=== PATIENT | male | born 1975 | race Caucasian/White ===

== ENCOUNTER → 2020-02-07 14:22 | Outpatient (BNVA) | payer MEDICARE, SELFPAY | PROVIDERS: Family Provider Nurse Practitioner Family; Visit Provider Nurse Practitioner | DX: E11.9 Type 2 diabetes mellitus without complications (principal); I10 Essential (primary) hypertension; G43.109 Migraine with aura, not intractable, without status migrainosus; R39.11 Hesitancy of micturition; Z11.59 Encounter for screening for other viral diseases | CPT/HCPCS: 80053; 80061; 83036; 86705; 86706; 86709; 86803; 87340 ==

== ENCOUNTER → 2020-02-08 08:42 | Outpatient (BNVA) | payer MEDICARE, SELFPAY | PROVIDERS: Family Provider Nurse Practitioner Family; Visit Provider Nurse Practitioner | DX: E11.9 Type 2 diabetes mellitus without complications (principal) | CPT/HCPCS: 81000 ==

== ENCOUNTER → 2020-06-03 14:54 | Outpatient (BNVA) | payer MEDICARE, SELFPAY | PROVIDERS: Family Provider Nurse Practitioner Family; Visit Provider Nurse Practitioner Family | DX: E11.9 Type 2 diabetes mellitus without complications (principal); E78.2 Mixed hyperlipidemia | CPT/HCPCS: 80053; 80061; 83036; 84443; 85025 ==

== ENCOUNTER → 2020-06-05 09:08 | Outpatient (BNVA) | payer MEDICARE, SELFPAY | PROVIDERS: Family Provider Nurse Practitioner Family; Visit Provider Nurse Practitioner Family | DX: R39.11 Hesitancy of micturition (principal); E11.9 Type 2 diabetes mellitus without complications | CPT/HCPCS: 81000; 82043 ==

== ENCOUNTER 2020-07-01 14:46 | Outpatient (CLI) | payer MEDICARE, MEDICAID, SELFPAY ==
--- NOTE | 2020-07-01 15:09 | XR_ITS ---
WS: [id number] ABDOMEN Supine view of the abdomen CLINICAL INFORMATION: low back pain, history of kidney stones COMPARISON: KUB FINDINGS: Large left staghorn calculus measuring 3.1 x 1.5 cm is new from 2013. Small surrounding satellite marion culi.No visualized right renal parenchymal calculi. No visualized ureteral calculi. XR/XR abdomen 1V* [id number] IMPRESSION: Large left staghorn calculus measuring 3.1 x 1.5 cm is new from 2013. No visual ized ureteral calculi.
== END 2020-07-01 14:47 | disposition home or self-care (01) ==
LOC: RADWPI 14:50
PROVIDERS: Family Provider Nurse Practitioner Family; PCP Nurse Practitioner Family; Visit Provider Nurse Practitioner Family
DX: M54.5 Low back pain (principal); Z87.442 Personal history of urinary calculi; N20.0 Calculus of kidney
CPT/HCPCS: 74018; 80053; 81000; 85025

== ENCOUNTER 2020-07-04 13:44 | Outpatient (CLI) | payer MEDICARE, MEDICAID, SELFPAY ==
--- NOTE | 2020-07-04 13:49 | XRR_ITS ---
PROCEDURE INFORMATION: Exam: XR Abdomen, 1 View Exam date and time: 07/04/2020 1:59 PM Age: 44 years old Clinical indication: Condition or disease; Kidney or ureter condition; Calculus (stone) in kidney; Prior surgery; Surgery type: Cysto; Additional info: HX of renal stone TECHNIQUE: Imaging protocol: XR of the abdomen. Views: Frontal supine view of the abdomen. 1 View. COMPARISON: CR XR abdomen 1V* [id number] 07/01/2020 3:13 PM FINDINGS: Gastrointestinal tract: The bowel gas pattern is within normal limits. Organs: A staghorn calculus is seen in the lower pole collecting system of the left kidney. Bones/joints: Unremarkable. Other findings: This finding was present on prior examination and appears similar. XR/XR KUB [id number] IMPRESSION: 1. No acute GI abnormality. 2. Stable staghorn calculus lower pole left kidney
== END 2020-07-04 13:45 | disposition home or self-care (01) ==
LOC: LAB 13:46
PROVIDERS: Family Provider Nurse Practitioner Family; PCP Nurse Practitioner Family; Visit Provider Nurse Practitioner Family
DX: Z87.442 Personal history of urinary calculi (principal); N20.0 Calculus of kidney
CPT/HCPCS: 74018

== ENCOUNTER → 2020-09-23 15:23 | Outpatient (BNVA) | payer MEDICARE, SELFPAY | PROVIDERS: PCP Nurse Practitioner Family; Visit Provider Nurse Practitioner Family | DX: E11.9 Type 2 diabetes mellitus without complications (principal); E78.2 Mixed hyperlipidemia; I10 Essential (primary) hypertension; G43.109 Migraine with aura, not intractable, without status migrainosus; R39.11 Hesitancy of micturition | CPT/HCPCS: 80053; 80061; 83036; 84443; 85025 ==

== ENCOUNTER → 2020-11-06 10:19 | Outpatient (BNVA) | payer MEDICARE, MEDICAID, SELFPAY | PROVIDERS: PCP Nurse Practitioner Family; Visit Provider Nurse Practitioner Family | DX: M54.5 Low back pain (principal) | CPT/HCPCS: 72100 ==

== ENCOUNTER → 2020-11-14 09:16 | Outpatient (BNVA) | payer MEDICARE, MEDICAID, SELFPAY | PROVIDERS: PCP Nurse Practitioner Family; Visit Provider Nurse Practitioner Family | DX: M54.5 Low back pain (principal); R20.0 Anesthesia of skin; Z73.89 Other problems related to life management difficulty; Z87.442 Personal history of urinary calculi | CPT/HCPCS: 81000 ==

== ENCOUNTER 2020-11-20 08:29 | Outpatient (CLI) | payer MEDICARE, MEDICAID, SELFPAY ==
--- NOTE | 2020-11-20 08:15 | XR_ITS ---
WS: [id number] KUB, AP view, 11/20/2020 Clinical Data: renal calculus Comparison: KUB, 07/04/2020. Findings: No abnormal intraabdominal masses are seen. There is no dilatated small bowel or evidence of obstruct ion. The staghorn calculus overlying the left kidney remains unchanged. XR/XR KUB [id number] Impression: Staghorn calculus lower pole left kidney.
== END 2020-11-20 08:30 | disposition home or self-care (01) ==
LOC: RAD 08:32
PROVIDERS: PCP Nurse Practitioner Family; Visit Provider Urology
DX: N20.0 Calculus of kidney (principal)
CPT/HCPCS: 74018; 81003

== ENCOUNTER → 2021-01-01 08:42 | Outpatient (BNVA) | payer MEDICARE, MEDICAID, SELFPAY | PROVIDERS: PCP Nurse Practitioner Family; Visit Provider Nurse Practitioner Family | DX: E11.9 Type 2 diabetes mellitus without complications (principal); E78.2 Mixed hyperlipidemia; M54.9 Dorsalgia, unspecified; I10 Essential (primary) hypertension; G43.109 Migraine with aura, not intractable, without status migrainosus; R39.11 Hesitancy of micturition; M79.89 Other specified soft tissue disorders; M54.5 Low back pain | CPT/HCPCS: 80053; 80061; 83036; 84443; 85025 ==

== ENCOUNTER 2021-01-15 08:44 | Outpatient (CLI) | payer MEDICARE, MEDICAID, SELFPAY ==
--- NOTE | 2021-01-15 08:45 | USCV_ITS ---
Kishan García Age: 45 Gender: M : 1975 Exam Date: 01/15/2021 09:13 Ordering Phys: Luz Luther-Deepti Technologist: DONALD [place] [facility] [place] MIXED HYPERLIPIDEMIA PROCEDURES: Venous duplex imaging was performed in only the right lower extremity. The following venous structures were evaluated: common femoral vein, profunda vein, proximal portion of the greater saphenous vein, superficial femoral vein, and the popliteal vein. In addition, the posterior tibial and peroneal trunk were evaluated. Serial compression, augmentation maneuvers, and spectral Doppler flow evaluation were performed. FINDINGS: Normal 2-D Doppler and augmentation and compressibility throughout the lower extremity venous structures. Additional imaging through the proximal calf veins also reveals no thrombus. Limited evaluation of the greater saphenous vein is patent with no thrombus. CONCLUSIONS No DVT right lower extremity. Dr. Vivien Wilder DO (Electronically Signed) Final Date: 16 January 2021 08:00 S
== END 2021-01-15 08:45 | disposition home or self-care (01) ==
LOC: US 08:48
PROVIDERS: PCP Nurse Practitioner Family; Visit Provider Nurse Practitioner Family
DX: E78.2 Mixed hyperlipidemia (principal)
CPT/HCPCS: 93971

== ENCOUNTER → 2021-05-12 16:31 | Outpatient (BNVA) | payer MEDICARE, MEDICAID, SELFPAY | PROVIDERS: PCP Nurse Practitioner Family; Visit Provider Nurse Practitioner Family | DX: R19.7 Diarrhea, unspecified (principal); I10 Essential (primary) hypertension; E11.9 Type 2 diabetes mellitus without complications; E78.2 Mixed hyperlipidemia | CPT/HCPCS: 80053; 85025 ==

== ENCOUNTER → 2021-05-13 08:54 | Outpatient (BNVA) | payer MEDICARE, MEDICAID, SELFPAY | PROVIDERS: PCP Nurse Practitioner Family; Visit Provider Nurse Practitioner Family | DX: R19.7 Diarrhea, unspecified (principal); K92.1 Melena | CPT/HCPCS: 82272; 87506 ==

== ENCOUNTER → 2021-05-22 14:46 | Outpatient (BNVA) | payer MEDICARE, MEDICAID, SELFPAY | PROVIDERS: PCP Nurse Practitioner Family; Visit Provider Nurse Practitioner Family | DX: M79.674 Pain in right toe(s) (principal); M79.89 Other specified soft tissue disorders | CPT/HCPCS: 73630; 84550; 85025 ==

== ENCOUNTER 2021-05-29 08:03 | Outpatient (CLI) | payer MEDICARE, MEDICAID, SELFPAY ==
--- NOTE | 2021-05-29 08:00 | USCV_ITS ---
Kishan García Age: 45 Gender: M : 1975 Exam Date: 05/29/2021 08:28 Ordering Phys: Luz Luther CNC APPLICATIONS ENGINEER-C Technologist: Eliza Borden [place] [facility] [place]ication: RLE PAIN AND SWELLING HISTORY: Lower extremity swelling. Lower extremity pain. PROCEDURES: Venous duplex imaging was performed in only the right lower extremity. The following venous structures were evaluated: common femoral vein, profunda vein, proximal portion of the greater saphenous vein, superficial femoral vein, and the popliteal vein. In addition, the posterior tibial and peroneal trunk were evaluated. Serial compression, augmentation maneuvers, and spectral Doppler flow evaluation were performed. FINDINGS: No evidence of DVT seen in any vessel visualized at this time. Examination was technically limited due to body habitus. CONCLUSIONS No evidence of right lower extremity DVT. Ryley Zavala MD (Electronically Signed) Final Date: 29 May 2021 14:52 S
== END 2021-05-29 08:04 | disposition home or self-care (01) ==
LOC: RAD 08:08
PROVIDERS: PCP Nurse Practitioner Family; Visit Provider Nurse Practitioner Family
DX: M79.89 Other specified soft tissue disorders (principal); M79.604 Pain in right leg
CPT/HCPCS: 93971

== ENCOUNTER 2021-05-30 15:01 | Outpatient (CLI) | payer MEDICARE, MEDICAID, SELFPAY ==
--- NOTE | 2021-05-30 15:00 | USCV_ITS ---
Kishan García Age: 45 Gender: M : 1975 Exam Date: 05/30/2021 15:27 Ordering Phys: Luz Luther BOX CUTTERKeilyC NET DEVELOPER CONSULTANT-C Technologist: Eliza Borden Exam Location: [facility] – [place] Indication: BLE PAIN Risk Factors: Previous Vascular Surgery: RIGHT LEFT BP: 170.0 / BP: 168.0/ 0 0 Waveform Velocity (cm/s) Velocity (cm/s) Waveform Triphasic 98.5 Iliac Prox 84.8 Triphasic Triphasic 85.5 Iliac Mid 85.8 Triphasic Triphasic 80.9 Iliac Distal 110.4 Triphasic Triphasic 85.4 SHUTTLE PREPARATION SUPERVISOR 111.7 Triphasic Triphasic 127.4 SFA Prox 123.6 Triphasic Triphasic 114.4 SFA Mid 103.9 Triphasic Triphasic SFA Dist Triphasic 110.4 80.5 Triphasic 52.0 POP 71.7 Triphasic Triphasic 106.8 BOXING INSTRUCTOR 80.5 Triphasic Triphasic 85.4 DPA 101.4 Triphasic 1.2 LIZ 1.2 FINDINGS Normal resting ABIs bilaterally. Triphasic arterial Doppler waveforms bilaterally. CONCLUSIONS No significant arterial obstruction, based on the above findings Dr Kennedi Millan MD [facility] (Electronically Signed) Final Date: 31 May 2021 09:51 S
== END 2021-05-30 15:02 | disposition home or self-care (01) ==
LOC: RAD 15:05
PROVIDERS: PCP Nurse Practitioner Family; Visit Provider Nurse Practitioner Family
DX: M79.89 Other specified soft tissue disorders (principal)
CPT/HCPCS: 93926

== ENCOUNTER 2021-07-08 10:04 | Outpatient (CLI) | payer MEDICARE, MEDICAID, SELFPAY ==
--- NOTE | 2021-07-08 09:30 | US_ITS ---
WS: [id number] ULTRASOUND ABDOMEN LIMITED CLINICAL INFORMATION: R79. - Other specified abnormal findings of blood chemi... COMPARISON: None. FINDINGS: Liver Size: Enlarged Craniocaudal length: 20.3 cm. Echogenicity: Coarse with diffuse fatty infiltration Surface nodularity: None. Mass (size and location): None. Bile ducts Intrahepatic ducts: Normal. Common bile duct diameter: 0.5 cm. Gallbladder Normal. Gallstones: None. Gallbladder sludge: None. Gallbladder wall thickening: None. Pericholecystic fluid: None. Sonographic Becerra sign: Absent. Pancreas Normal as visualized. Right kidney: Normal. Hydronephrosis: None. Size: 11.3 cm x 6.9 cm x 5.0 cm. Abdominal aorta and IVC Visualized portions are normal. Ascites: None. US/US liver [id number] IMPRESSION: 1. Hepatomegaly with diffuse fatty infiltration. 2. Gallbladder is normal. 3. No hydronephrosis in right kidney.
== END 2021-07-08 10:05 | disposition home or self-care (01) ==
PROVIDERS: PCP Nurse Practitioner Family; Visit Provider Nurse Practitioner Family
DX: R79.89 Other specified abnormal findings of blood chemistry (principal); R16.0 Hepatomegaly, not elsewhere classified; K76.0 Fatty (change of) liver, not elsewhere classified
CPT/HCPCS: 76705

== ENCOUNTER → 2021-09-25 13:23 | Outpatient (BNVA) | payer MEDICARE, MEDICAID, SELFPAY | PROVIDERS: PCP Nurse Practitioner Family; Visit Provider Nurse Practitioner Family | DX: E78.2 Mixed hyperlipidemia (principal); E11.9 Type 2 diabetes mellitus without complications; M54.9 Dorsalgia, unspecified; R39.11 Hesitancy of micturition; G43.109 Migraine with aura, not intractable, without status migrainosus; M79.89 Other specified soft tissue disorders; I10 Essential (primary) hypertension; M54.50 Low back pain, unspecified; G89.29 Other chronic pain | CPT/HCPCS: 80053; 80061; 83036; 84443; 85025 ==

== ENCOUNTER → 2021-12-29 12:16 | Outpatient (BNVA) | payer MEDICARE, MEDICAID, SELFPAY | PROVIDERS: PCP Nurse Practitioner Family; Visit Provider Nurse Practitioner | DX: E11.9 Type 2 diabetes mellitus without complications (principal); E78.2 Mixed hyperlipidemia; M79.89 Other specified soft tissue disorders; M54.9 Dorsalgia, unspecified; I10 Essential (primary) hypertension; G43.109 Migraine with aura, not intractable, without status migrainosus | CPT/HCPCS: 80053; 80061; 83036 ==

== ENCOUNTER → 2022-03-27 12:03 | Outpatient (BNVA) | payer MEDICARE, MEDICAID, SELFPAY | PROVIDERS: PCP Nurse Practitioner Family; Visit Provider Nurse Practitioner | DX: E11.9 Type 2 diabetes mellitus without complications (principal); I10 Essential (primary) hypertension; E78.2 Mixed hyperlipidemia; M79.89 Other specified soft tissue disorders; M54.9 Dorsalgia, unspecified; G43.109 Migraine with aura, not intractable, without status migrainosus; R39.11 Hesitancy of micturition | CPT/HCPCS: 80053; 83036 ==

== ENCOUNTER → 2022-07-01 16:34 | Outpatient (BNVA) | payer MEDICARE, MEDICAID, SELFPAY | PROVIDERS: PCP Nurse Practitioner Family; Visit Provider Nurse Practitioner | DX: I10 Essential (primary) hypertension (principal); E78.2 Mixed hyperlipidemia; M79.89 Other specified soft tissue disorders; E11.9 Type 2 diabetes mellitus without complications; G43.109 Migraine with aura, not intractable, without status migrainosus; R39.11 Hesitancy of micturition; G47.10 Hypersomnia, unspecified; E66.01 Morbid (severe) obesity due to excess calories | CPT/HCPCS: 80053; 80061; 83036 ==

== ENCOUNTER → 2022-07-06 11:34 | Outpatient (BNVA) | payer MEDICARE, MEDICAID, SELFPAY | PROVIDERS: PCP Nurse Practitioner Family; Visit Provider Nurse Practitioner Family | DX: E11.9 Type 2 diabetes mellitus without complications (principal); Z79.899 Other long term (current) drug therapy | CPT/HCPCS: 81003; 82043; 87086 ==

== ENCOUNTER → 2022-10-29 09:57 | Outpatient (BNVA) | payer MEDICARE, MEDICAID, SELFPAY | PROVIDERS: PCP Nurse Practitioner Family; Visit Provider Nurse Practitioner | DX: E11.9 Type 2 diabetes mellitus without complications (principal); M54.9 Dorsalgia, unspecified; I10 Essential (primary) hypertension; G43.109 Migraine with aura, not intractable, without status migrainosus; R39.11 Hesitancy of micturition; M79.89 Other specified soft tissue disorders; E78.2 Mixed hyperlipidemia; E11.69 Type 2 diabetes mellitus with other specified complication; E66.9 Obesity, unspecified | CPT/HCPCS: 80053; 80061; 83036 ==

== ENCOUNTER → 2023-02-10 10:32 | Outpatient (BNVA) | payer MEDICARE, MEDICAID, SELFPAY | PROVIDERS: PCP Nurse Practitioner Family; Visit Provider Nurse Practitioner | DX: I10 Essential (primary) hypertension (principal); E78.2 Mixed hyperlipidemia; M79.89 Other specified soft tissue disorders; M54.9 Dorsalgia, unspecified; E11.9 Type 2 diabetes mellitus without complications; G43.109 Migraine with aura, not intractable, without status migrainosus; R39.11 Hesitancy of micturition | CPT/HCPCS: 80053; 80061; 83036 ==

== ENCOUNTER → 2023-02-11 11:55 | Outpatient (BNVA) | payer MEDICARE, MEDICAID, SELFPAY | PROVIDERS: PCP Nurse Practitioner Family; Visit Provider Nurse Practitioner | DX: E11.9 Type 2 diabetes mellitus without complications (principal) | CPT/HCPCS: 82043 ==

== ENCOUNTER → 2023-05-05 11:26 | Outpatient (BNVA) | payer MEDICARE, MEDICAID, SELFPAY | PROVIDERS: PCP Nurse Practitioner Family; Visit Provider Nurse Practitioner | DX: I10 Essential (primary) hypertension (principal); E78.2 Mixed hyperlipidemia; M79.89 Other specified soft tissue disorders; M54.9 Dorsalgia, unspecified; E11.9 Type 2 diabetes mellitus without complications; G43.109 Migraine with aura, not intractable, without status migrainosus; R39.11 Hesitancy of micturition; E11.69 Type 2 diabetes mellitus with other specified complication; E66.9 Obesity, unspecified | CPT/HCPCS: 80053; 83036 ==

== ENCOUNTER → 2023-07-28 11:20 | Outpatient (BNVA) | payer MEDICARE, MEDICAID, SELFPAY | PROVIDERS: PCP Nurse Practitioner; Visit Provider Nurse Practitioner | DX: E11.9 Type 2 diabetes mellitus without complications (principal) | CPT/HCPCS: 80053; 80061; 83036 ==

== ENCOUNTER → 2023-07-29 09:00 | Outpatient (BNVA) | payer MEDICARE, MEDICAID, SELFPAY | PROVIDERS: PCP Nurse Practitioner; Visit Provider Nurse Practitioner | DX: E11.9 Type 2 diabetes mellitus without complications (principal); Z79.899 Other long term (current) drug therapy | CPT/HCPCS: 81003; 87086 ==

== ENCOUNTER → 2023-10-21 11:44 | Outpatient (BNVA) | payer MEDICARE, MEDICAID, SELFPAY | PROVIDERS: PCP Nurse Practitioner; Visit Provider Nurse Practitioner | DX: I10 Essential (primary) hypertension (principal); E78.2 Mixed hyperlipidemia; M79.89 Other specified soft tissue disorders; E11.9 Type 2 diabetes mellitus without complications; G43.109 Migraine with aura, not intractable, without status migrainosus; R39.11 Hesitancy of micturition | CPT/HCPCS: 80053; 83036; 84443 ==

== ENCOUNTER → 2023-11-18 09:39 | Outpatient (BNVA) | payer MEDICARE, MEDICAID, SELFPAY | PROVIDERS: PCP Nurse Practitioner; Referring Provider Nurse Practitioner; Visit Provider Podiatrist Foot & Ankle Surgery | DX: M24.571 Contracture, right ankle; M77.31 Calcaneal spur, right foot; M76.61 Achilles tendinitis, right leg | CPT/HCPCS: 73630; 99203 ==

== ENCOUNTER → 2024-01-06 10:56 | Outpatient (BNVA) | payer MEDICARE, MEDICAID, SELFPAY | PROVIDERS: PCP Nurse Practitioner; Visit Provider Nurse Practitioner | DX: E78.2 Mixed hyperlipidemia (principal); M79.89 Other specified soft tissue disorders; I10 Essential (primary) hypertension; G43.109 Migraine with aura, not intractable, without status migrainosus; E11.9 Type 2 diabetes mellitus without complications; R39.11 Hesitancy of micturition; M54.9 Dorsalgia, unspecified | CPT/HCPCS: 80053; 80061 ==

== ENCOUNTER → 2024-04-06 09:24 | Outpatient (BNVA) | payer MEDICARE, MEDICAID, SELFPAY | PROVIDERS: PCP Nurse Practitioner; Visit Provider Nurse Practitioner | DX: E78.2 Mixed hyperlipidemia (principal); M79.89 Other specified soft tissue disorders; I10 Essential (primary) hypertension; G43.109 Migraine with aura, not intractable, without status migrainosus; E11.9 Type 2 diabetes mellitus without complications; R39.11 Hesitancy of micturition; M54.9 Dorsalgia, unspecified; B37.9 Candidiasis, unspecified | CPT/HCPCS: 80053; 80061; 83036 ==

== ENCOUNTER → 2024-04-13 08:31 | Outpatient (BNVA) | payer MEDICARE, MEDICAID, SELFPAY | PROVIDERS: PCP Nurse Practitioner; Visit Provider Nurse Practitioner | DX: E11.9 Type 2 diabetes mellitus without complications (principal) | CPT/HCPCS: 82043 ==

== ENCOUNTER → 2024-06-22 09:30 | Outpatient (BNVA) | payer MEDICARE, MEDICAID, SELFPAY | PROVIDERS: PCP Nurse Practitioner; Visit Provider Nurse Practitioner | DX: E11.9 Type 2 diabetes mellitus without complications (principal) | CPT/HCPCS: 80053; 83036; 85025 ==

== ENCOUNTER → 2024-09-07 09:35 | Outpatient (BNVA) | payer MEDICARE, MEDICAID, SELFPAY | PROVIDERS: PCP Nurse Practitioner; Visit Provider Nurse Practitioner | DX: I10 Essential (primary) hypertension (principal); E78.2 Mixed hyperlipidemia; K06.9 Disorder of gingiva and edentulous alveolar ridge, unspecified; M79.89 Other specified soft tissue disorders; G43.109 Migraine with aura, not intractable, without status migrainosus; E11.9 Type 2 diabetes mellitus without complications; E11.69 Type 2 diabetes mellitus with other specified complication; E66.9 Obesity, unspecified; R39.11 Hesitancy of micturition; M54.9 Dorsalgia, unspecified | CPT/HCPCS: 80053; 83036 ==

== ENCOUNTER → 2024-11-30 08:56 | Outpatient (BNVA) | payer MEDICARE, MEDICAID, SELFPAY | PROVIDERS: PCP Nurse Practitioner; Visit Provider Nurse Practitioner | DX: E11.9 Type 2 diabetes mellitus without complications (principal) | CPT/HCPCS: 80053; 80061; 83036 ==

== ENCOUNTER → 2025-03-28 11:23 | Outpatient (BNVA) | payer MEDICARE, MEDICAID, SELFPAY | PROVIDERS: PCP Nurse Practitioner; Visit Provider Nurse Practitioner | DX: E55.9 Vitamin D deficiency, unspecified (principal); E11.9 Type 2 diabetes mellitus without complications | CPT/HCPCS: 82306; 85651; 86140 ==

== ENCOUNTER 2025-04-05 10:38 | Outpatient (CLI) | payer MEDICARE, MEDICAID, SELFPAY ==
--- NOTE | 2025-04-05 10:45 | XR_ITS ---
WS: [id number] Left knee, 3 views, 04/05/2025 Clinical Data: E11.9 - Type 2 diabetes mellitus without complications Comparison: None. Findings: No fractures or dislocations are seen. The joint spaces are normal. The patella is intact. The soft tissues are unremarkable. XR/XR knee LT 3V* [id number] Impression: Negative left knee.
--- NOTE | 2025-04-05 10:45 | XR_ITS ---
WS: [id number] Right knee, 3 views, 04/05/2025 Clinical Data: E11.9 - Type 2 diabetes mellitus without complications Comparison: None. Findings: No fractures or dislocations are seen. The joint spaces are normal. The patella is intact. The soft tissues are unremarkable. XR/XR knee RT 3V* [id number] Impression: Negative right knee.
== END 2025-04-05 10:39 | disposition home or self-care (01) ==
LOC: RAD 10:41
PROVIDERS: PCP Nurse Practitioner; Visit Provider Nurse Practitioner
DX: E11.9 Type 2 diabetes mellitus without complications (principal)
CPT/HCPCS: 73562

== ENCOUNTER → 2025-05-14 08:00 | Outpatient (BNVA) | payer MEDICARE, MEDICAID, SELFPAY | PROVIDERS: PCP Nurse Practitioner; Visit Provider Nurse Practitioner | DX: E11.9 Type 2 diabetes mellitus without complications (principal) | CPT/HCPCS: 80053; 80061; 83036 ==

== ENCOUNTER → 2025-06-05 10:39 | Outpatient (BNVA) | payer MEDICARE, MEDICAID, SELFPAY | PROVIDERS: PCP Nurse Practitioner; Visit Provider Clinical Nurse Specialist Adult Health | DX: R10.9 Unspecified abdominal pain (principal) | CPT/HCPCS: 81000; 87086 ==

== ENCOUNTER 2025-07-12 14:27 | Outpatient (CLI) | payer MEDICARE, MEDICAID, SELFPAY ==
--- NOTE | 2025-07-12 14:39 | XR_ITS ---
WS: [id number] Exam: XR KUB [id number] Date/Time of Exam: 07/12/2025 2:39 PM Reason For Exam: N39.0 - Urinary tract infection, site not specified No bowel obstruction or free air. Calcifications superimpose both kidneys that may represent renal calculi. No sign of organ enlargement. Bony structures are intact. Nonspecific pelvic calcifications noted. XR/XR KUB [id number] IMPRESSION: 1. No acute process. 2. Calcifications superimpose both kidneys and may represent renal calculi.
== END 2025-07-12 14:28 | disposition home or self-care (01) ==
LOC: RAD 14:29
PROVIDERS: PCP Nurse Practitioner; Visit Provider Clinical Nurse Specialist Adult Health
DX: N39.0 Urinary tract infection, site not specified (principal); N20.0 Calculus of kidney
CPT/HCPCS: 74018; 81000

== ENCOUNTER → 2025-08-01 08:24 | Outpatient (BNVA) | payer MEDICARE, MEDICAID, SELFPAY | PROVIDERS: PCP Nurse Practitioner; Visit Provider Nurse Practitioner | DX: E11.69 Type 2 diabetes mellitus with other specified complication (principal); E66.9 Obesity, unspecified | CPT/HCPCS: 80053; 80061; 83036; 85025 ==